=== PATIENT | male | born 1935 | race Caucasian/White ===

== ENCOUNTER 2016-11-30 05:15 | Inpatient (IN) ==
--- NOTE | 2016-11-24 11:23 | EKG Report ---
Test Performed on : 11/24/2016 11:21:36 AM Test Reason : PAT Blood Pressure : / mmHG Vent. Rate : 055 BPM Atrial Rate : 055 BPM P-R Int : 204 ms QRS Dur : 084 ms QT Int : 382 ms P-R-T Axes : 030 040 047 degrees QTc Int : 365 ms Sinus bradycardia. Otherwise normal ECG No previous ECGs available Confirmed by Brenden Hancock MD ([id number]) on 11/24/2016 3:01:18 PM
[2016-11-24 12:43] LABS: MANUAL DIFF NEEDED? NO; URINE MICRO REVIEW NEEDED? NO; URINE SOURCE CLEAN CATCH
[2016-11-24 12:47] LABS: BILIRUBIN URINE NEGATIVE (NEGATIVE); BLOOD URINE NEGATIVE (NEGATIVE); COLOR YELLOW; GLUCOSE URINE NEGATIVE (NEGATIVE); LEUKOCYTES URINE NEGATIVE (NEGATIVE); NITRITE URINE NEGATIVE (NEGATIVE); PH URINE 7.5; PROTEIN URINE NEGATIVE (NEGATIVE); SP GRAVITY URINE 1.006; TURBIDITY URINE CLEAR (CLEAR); UR EPITHELIAL CELLS <10 /HPF (<10); URINE BACTERIA NEGATIVE /HPF; URINE RBC <10 /HPF (<10); URINE WBC <10 /HPF (<10); UROBILINOGEN URINE NORMAL (NORMAL)
[2016-11-24 12:55] LABS: BASO% 0.3 % (0.0-0.8); EOS# 0.03 X1000 (0.0-0.7); EOS% 0.8 % (0.0-10.0); HEMATOCRIT 34.9 % (42.0-52.0); HEMOGLOBIN 11.7 g/dL (14.0-18.0); LYMPH# 0.76 X1000 (1.2-3.4); LYMPH% 19.1 % (20.5-51.1); MCH 31.6 PG (27-31); MCHC 33.5 g/dL (33-37); MCV 94.3 FL (81-99); MONO# 0.34 X1000 (0.11-0.59); MONO% 8.6 % (1.7-9.3); MPV 10.4 FL (7.4-10.4); NEUT% 71.2 % (42.2-75.2); PLT 154 X1000 (130-400)
[2016-11-24 12:56] LABS: INR 1.03; PROTIME 10.8 Seconds (9.2-11.7); PTT 28.6 Seconds (22.0-36.0)
[2016-11-24 13:09] LABS: AGAP 9; BUN 16 mg/dL (8-22); CALCIUM 9.3 mg/dL (8.8-10.2); CHLORIDE 92 mmol/L (98-107); COSMO 258; SODIUM 128 mmol/L (136-145); TCO2 27 mmol/L (25-35)
[2016-11-30] MEDS ORDERED: COLACE ONE (05:38)
[2016-11-30] MEDS ORDERED: PEPCID ONE (05:38)
[2016-11-30] MEDS ORDERED: CELEBREX ONE (05:39)
[2016-11-30] MEDS ORDERED: REGLAN ONE (05:39)
[2016-11-30] MEDS ORDERED: LR 1,000 ML ONE (05:39)
[2016-11-30] MEDS ORDERED: LYRICA ONE (05:39)
[2016-11-30] MEDS ORDERED: KEFZOL 2 GM/D5W 2 GM/50 ML IVPB ONE (05:39)
[2016-11-30] MEDS ORDERED: SODIUM CHLORIDE 0.9% ONE (06:43)
[2016-11-30] MEDS ORDERED: CYKLOKAPRON 1,000 MG/NS 1,000 MG/100 ML IVPB ONE (06:43)
[2016-11-30] MEDS ORDERED: TORADOL ONE (06:43)
[2016-11-30] MEDS ORDERED: DURAMORPH ONE (06:43)
[2016-11-30] MEDS ORDERED: NEOSPORIN G.U. IRRIGANT ONE (06:44)
[2016-11-30] MEDS ORDERED: EXPAREL 1.3% ONE (06:44)
[2016-11-30] MEDS ORDERED: DIPRIVAN 1% ONE (06:47)
[2016-11-30] MEDS ORDERED: XYLOCAINE-MPF 2% ONE (06:47)
[2016-11-30] MEDS ORDERED: QUELICIN (DOSE) ONE (06:47)
[2016-11-30] MEDS ORDERED: KETAMINE (DOSE) ONE (07:06)
[2016-11-30] MEDS ORDERED: OFIRMEV 1000 MG/ISOTONIC SOLN 1,000 MG/100 ML BOTTLE ONE (07:07)
[2016-11-30] MEDS ORDERED: ROBINUL ONE ×3 (07:10→08:06)
[2016-11-30] MEDS ORDERED: MARCAINE 0.25% PF/EPI 1:200,000 ONE ×2 (07:15→07:18)
[2016-11-30] MEDS ORDERED: DECADRON ONE (07:24)
[2016-11-30] MEDS ORDERED: ZEMURON ONE (07:40)
[2016-11-30] MEDS ORDERED: NEOSTIGMINE ONE (08:06)
[2016-11-30 08:19] LABS: URINE MICRO REVIEW NEEDED? NO; URINE SOURCE CATH
[2016-11-30 08:23] LABS: BILIRUBIN URINE NEGATIVE (NEGATIVE); BLOOD URINE NEGATIVE (NEGATIVE); COLOR STRAW; GLUCOSE URINE NEGATIVE (NEGATIVE); LEUKOCYTES URINE NEGATIVE (NEGATIVE); NITRITE URINE NEGATIVE (NEGATIVE); PROTEIN URINE NEGATIVE (NEGATIVE); SP GRAVITY URINE 1.007; TURBIDITY URINE CLEAR (CLEAR); UROBILINOGEN URINE NORMAL (NORMAL)
[2016-11-30 08:24] LABS: UR EPITHELIAL CELLS <10 /HPF (<10); URINE BACTERIA NEGATIVE /HPF; URINE RBC <10 /HPF (<10); URINE WBC <10 /HPF (<10)
--- NOTE | 2016-11-30 09:08 | OPERATIVE NOTE ---
PROCEDURE DATE: 11/30/2016 PREOPERATIVE DIAGNOSIS: Right glenohumeral arthritis. POSTOPERATIVE DIAGNOSIS: Right glenohumeral arthritis. PROCEDURE: Right reverse shoulder arthroplasty with Depuy Delta Extend size 14 press-fit humeral stem, 42 +3 humeral cup, 42 eccentric Glenosphere, and a standard metaglene. SURGEON: Jesse Metcalf MD. MACHINING SUPERVISOR: VIANCA Mott. SECOND [employer]TEGR[employer]IST[employer] OPERATIONS MANAGER: Hakeem Henderson RN. ANESTHESIA: General. IV FLUIDS: 1000 mL lactated Ringer's. ESTIMATED BLOOD LOSS: 150 mL. COMPLICATIONS: None. INDICATIONS: The patient is a 81-year-old male with chronic history of worsening pain and discomfort of his right shoulder. He also had weakness with his rotator cuff strength testing. X- rays revealed degenerative osteoarthritis. A recommendation to proceed with right reverse shoulder arthroplasty was offered. Risks and benefits of surgery were explained , including the risks of anesthesia, , bleeding, infection, failure to relieve pain, postoperative stiffness, nerve injury, blood clots, and other imponderables. All questions were answered. The patient and family wished to proceed with surgery. DETAILS OF OPERATION: The patient was taken to the operating room and placed supine on the operating table. Once adequate anesthesia was obtained, he was placed in semi- East beach-chair position. The right shoulder was subsequently prepped and draped in the usual sterile fashion. A deltopectoral incision was then made with a skin knife. Hemostasis was obtained using electrocautery. The deltopectoral interval was then developed. The cephalic vein was retracted laterally with the deltoid. The clavipectoral fascia was then elevated as well. Deep Bartholomew retractors were placed. The conjoint tendon was elevated as well. Attention was turned to the subscapularis. A stay suture was then placed. Approximately 1 cm medial to its insertion, it was released. It was then retracted. The shoulder was then dislocated anteriorly. The fibers of the superior aspect of the rotator cuff were released as well as biceps tendon. A starting reamer was then passed in the intramedullary canal, sequential reaming up to size 14. A guide was then placed in the proximal humeral and the humeral cutting guide was pinned in position, approximately in 10 degrees of retroversion. After this had been performed, the proximal humeral head was then resected. A protective disk was then placed. Attention was then turned to the glenoid. Circumferential dissection was then performed with a deep knife. A guide was then placed on the glenoid and a guide pin was then placed. Reaming was then conducted. The central hole was then dilated. The wound was copiously irrigated with antibiotic irrigation. A standard Metaglene was then impacted in position. Four locking screws were placed, had good purchase and good stability. The wound was copiously once again. A 42 eccentric Glenosphere was then placed with eccentricity placed inferiorly. Attention was then turned to the proximal humerus where a intramedullary guide was then placed in position. The proximal humerus was reamed. This was then removed. Copious irrigation was performed once again with antibiotic pulsatile lavage. A size 14 press-fit stem was then impacted in position and had excellent fit. A trial cup size was then placed. A 42, +3 humeral cup had excellent stability and range of motion. The trial cup was removed. After this then performed, the wound was copiously irrigated once again. A 42, +3 humeral cup was then impacted on the stem. Shoulder was reduced and carried through a range of motion. It had excellent range of motion and stability. Exparel was placed in the deep soft tissue as well as well as the subcutaneous tissue. Then #2 FiberWire was used to repair the subscapularis tendon. There appeared to be good repair. Irrigation was then performed once again with antibiotic pulsatile lavage. Then 2-0 Vicryl was used to repair the subcutaneous tissue, followed by running 2-0 Prolene. Benzoin and Steri-Strips were applied. Adaptic, sterile 4 x 4s, ABD pad, and tape were applied to the right shoulder, followed by a shoulder immobilizer. All counts were correct. The patient tolerated the procedure well and was transferred to the recovery room in stable condition. cc: Jesse Metcalf MD MTDD
[2016-11-30] MEDS: MORPHINE ONE ×2 (09:10→09:39)
[2016-11-30] MEDS ORDERED: NS 1,000 ML ONE (09:11)
--- NOTE | 2016-11-30 09:38 | Diag Imaging Result Doc PS360 ---
SHOULDER 1 VIEW RIGHT - 11/30/2016 INDICATION: R TSA TECHNIQUE: One view COMPARISON: None FINDINGS: There has been right total shoulder arthroplasty. Alignment is anatomic. No hardware fracture or loosening. IMPRESSION: No complication. Electronically signed by John Fields 11/30/2016 9:36 AM
[2016-11-30] MEDS: PROTONIX PO SCH (10:12)
[2016-11-30] MEDS: ALEVE PO SCH ×2 (10:13→21:55)
[2016-11-30] MEDS: ASPIRIN PO SCH (10:13)
[2016-11-30] MEDS: ZYRTEC PO SCH (10:14)
[2016-11-30] MEDS: CARAFATE PO SCH ×2 (10:14→21:55)
[2016-11-30] MEDS: PRINIVIL PO SCH (10:15)
[2016-11-30] MEDS: TENORMIN PO SCH (10:15)
[2016-11-30] MEDS: TRICOR PO SCH (10:15)
[2016-11-30] MEDS: CENTRUM SILVER PO SCH (10:16)
[2016-11-30] MEDS: LIBRAX PO SCH ×2 (10:16→21:54)
[2016-11-30] MEDS: CARDURA PO SCH (10:16)
[2016-11-30] MEDS ORDERED: ZOFRAN PO PRN (10:45)
[2016-11-30] MEDS ORDERED: MILK OF MAGNESIA PO PRN (10:45)
[2016-11-30] MEDS ORDERED: MORPHINE IV PRN (10:46)
[2016-11-30] MEDS: OXY IR PO PRN ×2 (10:58→20:19)
[2016-11-30] MEDS ORDERED: NS 1,000 ML IV SCH (11:00)
[2016-11-30] MEDS: OFIRMEV 1000 MG/ISOTONIC SOLN 1,000 MG/100 ML BOTTLE IV SCH ×2 (12:53→18:27)
[2016-11-30] MEDS ORDERED: CYKLOKAPRON 1,000 MG in NS 100 ML IV ONE (13:00)
[2016-11-30] MEDS: COLACE PO SCH ×2 (14:27→21:55)
[2016-11-30] MEDS: KEFZOL 2 GM/D5W 2 GM/50 ML IVPB IV SCH ×2 (15:24→21:55)
[2016-11-30] MEDS ORDERED: PNEUMOVAX 23 IM ONE (17:00)
[2016-11-30] MEDS: PERIDEX MT SCH (21:54)
[2016-12-01] MEDS: OFIRMEV 1000 MG/ISOTONIC SOLN 1,000 MG/100 ML BOTTLE IV SCH ×2 (00:43→06:02)
[2016-12-01] MEDS: KEFZOL 2 GM/D5W 2 GM/50 ML IVPB IV SCH (03:50)
[2016-12-01] MEDS: PROTONIX PO SCH (06:02)
[2016-12-01 06:16] LABS: HEMATOCRIT 28.3 % (42.0-52.0); HEMOGLOBIN 9.5 g/dL (14.0-18.0)
[2016-12-01 06:27] LABS: AGAP 7; BUN 17 mg/dL (8-22); CALCIUM 7.9 mg/dL (8.8-10.2); CHLORIDE 102 mmol/L (98-107); COSMO 273; POTASSIUM 4.2 mmol/L (3.5-5.1); SODIUM 134 mmol/L (136-145); TCO2 25 mmol/L (25-35)
--- NOTE | 2016-12-01 06:32 | PROGRESS NOTE ---
DATE: 12/01/2016 SUBJECTIVE: The patient is a pleasant 81-year-old male who is 1 day status post right reverse total shoulder arthroplasty. Patient is currently resting comfortably. He has no complaints. OBJECTIVE: On physical exam, his wound looks good. There is no signs or symptoms of infection. He is grossly neurovascularly intact. LABORATORY DATA: His hemoglobin and hematocrit are pending. IMPRESSION: Postoperative day #1 status post right reverse total shoulder arthroplasty. PLAN: At this point, will change his dressing, Hep-Lock his IV and discontinue his Aviles. The patient be discharged home and we will arrange for home physical therapy. cc: Jesse Metcalf MD
[2016-12-01 07:32] VITALS: BP 130/70
[2016-12-01] MEDS: CARDURA PO SCH (08:32)
[2016-12-01] MEDS: PERIDEX MT SCH (08:32)
[2016-12-01] MEDS: LIBRAX PO SCH (08:33)
[2016-12-01] MEDS: ZYRTEC PO SCH (08:33)
[2016-12-01] MEDS: PRINIVIL PO SCH (08:33)
[2016-12-01] MEDS: COLACE PO SCH (08:33)
[2016-12-01] MEDS: TRICOR PO SCH (08:33)
[2016-12-01] MEDS: ALEVE PO SCH (08:34)
[2016-12-01] MEDS: ASPIRIN PO SCH (08:34)
[2016-12-01] MEDS: CARAFATE PO SCH (08:34)
[2016-12-01] MEDS: TENORMIN PO SCH (08:35)
[2016-12-01] MEDS: CENTRUM SILVER PO SCH (08:35)
[2016-12-01] MEDS: OXY IR PO PRN (10:54)
== END 2016-12-01 11:27 | disposition home health service (06) ==
LOC: SURHOLD 05:15 → 4N 08:11
PROVIDERS: ADMIT Orthopaedic Surgery Adult Reconstructive Orthopaedic Surgery; ATTEND Orthopaedic Surgery Adult Reconstructive Orthopaedic Surgery